=== PATIENT | female | born 1995 | race Caucasian/White ===

== ENCOUNTER 2017-08-22 13:13 | Emergency (ER) | payer BC ==
[2017-08-22 13:58] LABS: #Eosinphils 0.1 thou/uL (0.0-0.7); #Monocytes 0.3 thou/uL (0.11-0.59); #Neutrophils 2.8 thou/uL (1.40-6.50); %Basophils 0.7 % (0.0-1.0); %Eosinophils 1.5 % (0.0-10.0); %Neutrophils 53.8 % (42.0-75.0); Hemoglobin 14.8 g/dL (12.0-16.0); Mean Corpuscular Hemoglobin 29.5 pg (27.0-31.0); Mean Corpuscular Volume 89.3 fl (81.0-99.0); Mean Platelet Volume 8.4 fL (7.4-10.4); Platelet Count 226 thou/uL (130-400); RBC Distribution Width 11.9 % (11.5-14.5); Red Blood Cell (RBC) Count 5.01 mill/uL (4.20-5.40); White Blood Cell (WBC) Count 5.2 thou/uL (4.8-10.8)
[2017-08-22 14:23] LABS: ALT (SGPT) 12 U/L (8-55); AST (SGOT) 18 U/L (5-34); Albumin 4.5 g/dL (3.5-5.0); Alkaline Phosphatase 72 U/L (40-150); Anion Gap 11 mmol/L (10-20); BUN (Urea Nitrogen) 8 mg/dL (7.0-18.7); Bilirubin, Total 0.6 mg/dL (0.2-1.2); Calc. Creatinine Clearance 0 mL/min (70-130); Carbon Dioxide 23 mmol/L (22-29); Chloride 110 mmol/L (98-107); Estimated GFR-MDRD 86; Globulin 3.8 g/dL (2.4-3.5); Glucose 106 mg/dL (70-105); Potassium 3.9 mmol/L (3.5-5.1); Protein, Total 8.3 g/dL (6.0-8.3); Sodium 140 mmol/L (136-145)
[2017-08-22] MEDS ORDERED: Dexamethasone 4 mg/ml Vial ONE (14:46)
[2017-08-22] MEDS ORDERED: diphenhydrAMINE 50 MG/ML VIAL ONE (14:46)
[2017-08-22] MEDS ORDERED: Ketorolac Tromethamine 30 MG/ML VIAL ONE (14:47)
[2017-08-22] MEDS ORDERED: Metoclopramide HCl 10 MG/2 ML VIAL ONE (14:47)
--- NOTE | 2017-08-22 15:20 | CT ---
CT BRAIN NONCONTRAST: HISTORY: 21-year-old female with headache. FINDINGS: There is no midline shift or any other mass effect. There is no evidence of acute intracranial hemor rhage, large cortical infarct, obstructive hydrocephalus, or extraaxial fluid collection. The calvar ium is intact. There is mild partial opacification of the sphenoid sinus. IMPRESSION: No acute intracranial findings. kanchan POS: JIN
[2017-08-22] MEDS ORDERED: Diazepam 5 MG TAB ONE (16:01)
== END 2017-08-22 16:49 | disposition home or self-care (01) ==
LOC: ERS 13:13
DX: G43.909 Migraine, unspecified, not intractable, without status migrainosus (principal); Z79.899 Other long term (current) drug therapy
CPT/HCPCS: 70450; 80053; 85025; 96365; 96375; J1100; J1200; J1885; J2765

== ENCOUNTER 2019-10-10 14:53 | Inpatient (IN) | payer BC ==
[2019-10-10] MEDS ORDERED: Ondansetron PF 4 MG/2 ML Vial IVP PRN (22:02)
[2019-10-10] MEDS ORDERED: Misoprostol 200 MCG TAB PR PRN (22:02)
[2019-10-10] MEDS ORDERED: HYDROcodone/Acetaminophen 5/325 mg Tablet PO PRN (22:02)
[2019-10-10] MEDS ORDERED: Zolpidem Tartrate 5 MG TAB PO PRN (22:02)
[2019-10-10] MEDS ORDERED: hydrALAZINE 20 MG/ML VIAL SLOW IVP PRN (22:02)
[2019-10-10] MEDS ORDERED: Ibuprofen 800 MG TAB PO PRN (22:02)
[2019-10-10] MEDS ORDERED: Lidocaine 1% (PF) 30 ML VIAL SC PRN (22:02)
[2019-10-10] MEDS ORDERED: Promethazine HCl 25 MG/ML VIAL IM PRN (22:02)
[2019-10-10] MEDS ORDERED: Carboprost 250 MCG/ML AMP IM PRN (22:02)
[2019-10-10] MEDS ORDERED: Butorphanol Tartrate 1 MG/ML VIAL SLOW IVP PRN (22:02)
[2019-10-10] MEDS ORDERED: Diphenoxylate HCl/Atropine Tablet PO PRN ×2 (22:02)
[2019-10-10] MEDS ORDERED: Acetaminophen 500 MG TAB PO PRN (22:02)
[2019-10-10] MEDS ORDERED: NS / Oxytocin 40 units/1000ml 1,000 ML IV PRN (22:02)
[2019-10-10 22:17] LABS: Hemoglobin 10.1 g/dL (12.0-16.0); Mean Corpuscular HGB CONC 33.2 g/dL (32.0-36.0); Mean Corpuscular Volume 81.3 fL (78.0-98.0); Mean Platelet Volume 10.1 fL (7.4-10.4); Platelet Count 201 thou/uL (130-400); RBC Distribution Width 14.2 % (11.5-14.5); Red Blood Cell (RBC) Count 3.73 mill/uL (4.20-5.40); White Blood Cell (WBC) Count 8.6 thou/uL (4.8-10.8)
[2019-10-10] MEDS ORDERED: NS w/ Oxytocin 10 units 500 ML IV SCH (22:30)
[2019-10-10 23:00] LABS: HBSAg Index 0.24 S/CO (0-0.99); Hep B Surf Ag Non-Reactive S/CO (NonReactive)
[2019-10-10 23:01] LABS: Syphilis Antibody Nonreactive (Nonreactive); Syphilis Antibody Index 0.04 S/CO (<1.00 Non-Reactive)
[2019-10-11 00:45] VITALS: BMI 22.8
[2019-10-11] MEDS: Lactated Ringer's 1,000 ML IV SCH ×3 (07:21→11:22)
[2019-10-11] MEDS: Misoprostol 100 MCG TAB VAG SCH ×3 (07:23→17:25)
[2019-10-11] MEDS ORDERED: Fentanyl 4 mcg/Bup 0.1% Cadd 100 ML ONE (11:24)
[2019-10-11] MEDS ORDERED: Acetaminophen 325 MG TAB PO PRN (11:44)
[2019-10-11] MEDS ORDERED: Ondansetron PF 4 MG/2 ML Vial IVP PRN (11:44)
[2019-10-11] MEDS ORDERED: diphenhydrAMINE 50 MG/ML VIAL IVP PRN (11:44)
[2019-10-11] MEDS ORDERED: Lactated Ringer's 500 ML IV PRN (11:44)
[2019-10-11] MEDS ORDERED: EPHEDRINE 25 MG/5 ML SYRINGE SLOW IVP PRN (11:44)
[2019-10-11] MEDS ORDERED: Naloxone HCl 0.4 mg/ml Vial IVP PRN ×2 (11:44)
[2019-10-11] MEDS ORDERED: Promethazine HCl 25 MG/ML VIAL IM PRN (11:44)
[2019-10-11] MEDS ORDERED: Communication Order-Pharmacy FS SCH (11:45)
[2019-10-11] MEDS ORDERED: Fentanyl 4 mcg/Bupivacaine 0.1% Cassette 100 ML EPIDURAL SCH (11:45)
--- NOTE | 2019-10-11 16:53 | PDOC.OPDEL ---
OB Operative/Delivery Note Delivery Dr/Surgeon: Prince Pre-Delivery Diagnosis: elective induction Procedure/Post Delivery Dx: spontaneous vaginal delivery Weeks gestation: 40 Anesthesia: epidural - Findings A Sex: female Weight: 7 lb 10 oz - 1 min: 8 - 5 min: 9 - Additional Findings/Plan Placenta delivered: spontaneous Repaired Obstetrical Laceration: periurethral (and second degree repaired)
[2019-10-11] MEDS ORDERED: Bisacodyl 10 MG SUPP PR PRN (16:54)
[2019-10-11] MEDS ORDERED: Adacel (T-DAP) 0.5 ML SYRINGE IM ONE (16:54)
[2019-10-11] MEDS ORDERED: Milk Of Magnesia 30 ML UDCUP PO PRN (16:54)
[2019-10-11] MEDS ORDERED: hydrALAZINE 20 MG/ML VIAL SLOW IVP PRN (16:54)
[2019-10-11] MEDS ORDERED: Lanolin Ointment 7 GM TUBE TOP PRN (16:54)
[2019-10-11] MEDS ORDERED: traMADol HCl 50 MG TAB PO PRN (16:54)
[2019-10-11] MEDS ORDERED: Preparation H Ointment 28 GM TUBE PR PRN (16:54)
[2019-10-11] MEDS ORDERED: Benzocaine-Menthol 82.5 ML CAN TOP PRN (16:54)
[2019-10-11] MEDS ORDERED: NS / Oxytocin 40 units/1000ml 1,000 ML IV SCH (17:00)
[2019-10-11] MEDS: Ferrous Sulfate 325 MG TAB PO SCH (18:37)
[2019-10-11] MEDS: Docusate Calcium (SURFAK) 240 MG CAP PO SCH (20:45)
[2019-10-11] MEDS: Ibuprofen 800 MG TAB PO SCH (20:45)
[2019-10-12] MEDS: Ibuprofen 800 MG TAB PO SCH ×2 (06:05→12:56)
--- NOTE | 2019-10-12 08:06 | PDOC.PP ---
Post Progress Note Post Day #: 1 PO intake tolerated: yes Flatus: yes Ambulation: yes Vital Signs (12 hours) Temp Pulse Resp BP 10/12/19 05:35 98.7 F 75 17 110/62 10/12/19 00:45 99.0 F 84 16 99/64 Weight Weight 142 lb Result Diagrams: 10/10/19 22:07 Additional Labs: Post Labs Blood Type A POSITIVE 10/10/19 22:37 Hep Bs Antigen Non-Reactive S/CO (NonReactive) 10/10/19 22:07 - Assessment/Plan post day 1 doing well. d/c home f/u 6 weeks...
[2019-10-12] MEDS: Docusate Calcium (SURFAK) 240 MG CAP PO SCH (08:12)
[2019-10-12] MEDS ORDERED: Prenatal Vitamin 1 TAB PO SCH (09:00)
[2019-10-12] MEDS: Ferrous Sulfate 325 MG TAB PO SCH ×2 (09:09→09:12)
[2019-10-12 11:47] VITALS: BP 108/52; TEMP 98.6
== END 2019-10-12 18:45 | disposition home or self-care (01) | DRG 807 ==
LOC: L&D 20:58 → 3SW 10-11 19:55
PROVIDERS: ADMIT Obstetrics & Gynecology; ATTEND Obstetrics & Gynecology
PROC: 10E0XZZ Delivery of Products of Conception, External Approach (ICD-10-PCS; principal; 2019-10-11)
PROC: 0KQM0ZZ Repair Perineum Muscle, Open Approach (ICD-10-PCS; 2019-10-11)
PROC: 3E033VJ Introduction of Other Hormone into Peripheral Vein, Percutaneous Approach (ICD-10-PCS; 2019-10-11)
PROC: 0UQMXZZ Repair Vulva, External Approach (ICD-10-PCS; 2019-10-11)
DX: O70.1 Second degree perineal laceration during delivery (principal); Z37.0 Single live birth; Z3A.40 40 weeks gestation of pregnancy; O71.82 Other specified trauma to perineum and vulva
CPT/HCPCS: 36415; 51702; 85027; 86780; 86850; 86900; 86901; 87340; J0595; J2590